=== PATIENT | male | born 1970 | race Caucasian/White ===

== ENCOUNTER 2020-10-03 13:24 | Emergency (ER) | payer MEDICAID ==
[2020-10-03 13:56] LABS: HEMOGLOBIN 16.9 gm/dl (14.0-17.5); RED BLOOD COUNT 4.78 M/UL (4.20-5.50); WHITE BLOOD COUNT 11.9 K/UL (4.5-11.0)
[2020-10-03 14:31] LABS: BUN/CREATININE RATIO 12 (0-10)
== END 2020-10-03 17:09 | disposition home or self-care (01) ==
LOC: ER1 13:24
PROVIDERS: Preventive Medicine Occupational Medicine
DX: R55 Syncope and collapse (principal); F17.290 Nicotine dependence, other tobacco product, uncomplicated; Z20.822 Contact with and (suspected) exposure to COVID-19
CPT/HCPCS: 70450; 71045; 76705; 80053; 80307; 81001; 82009; 82550; 82553; 83690; 83874; 83880; 84484; 85025; 85379; 85652; 86140; 87086; 93005; 96365; 96375; 99285; C9113; J2060; J2405; Q9967; U0002